=== PATIENT | female | born 1995 | race Caucasian/White ===

== ENCOUNTER 2021-04-06 09:27 | Emergency (ER) | payer OTHER ==
[~2021-04-06] VITALS: Ht 149.9 cm; Wt 74.8 kg
[2021-04-06 09:59] LABS: ABSOLUTE BASOPHILS 0.1 thou/uL (0.0-0.2); ABSOLUTE EOSINOPHILS 0.2 thou/uL (0.0-0.7); ABSOLUTE LYMPHOCYTES 2.5 thou/uL (0.8-5.3); ABSOLUTE MONOCYTES 0.5 thou/uL (0.0-1.2); BASOPHILS 0.9 %; EOSINOPHILS 3.1 %; HEMOGLOBIN 14.4 gm/dL (12.0-15.0); LYMPHOCYTES 34.2 %; MCH 29.5 pg (26.0-34.0); MCHC 34.3 g/dL (28.0-37.0); MCV 86.1 fL (80.0-100.0); MONOCYTES 6.8 %; MPV 8.4 fl. (7.2-11.1); NUCLEATED RBCS 0 /100WBC; PLATELET COUNT* 258 thou/uL (150-400); RBC 4.88 mil/uL (4.20-5.00); RDW-CV 12.2 % (10.5-14.5); WBC 7.2 thou/uL (4.0-11.0)
--- NOTE | 2021-04-06 10:17 | EKG ---
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1995 Requested By: Benjamín Rivera Order Number: [id number] MD: Ketan Elizalde Measurements Intervals [place] Rate: 90 P: 60 SD: 143 QRS: -8 QRSD: 81 T: 7 QT: 371 QTc: 454 Interpretive Statements Sinus rhythm Borderline T abnormalities, anterior leads No previous ECG available for comparison Electronically Signed On 04-06-2021 10:17:22 CDT by Ketan Elizalde [email or web address] <ELECTRONICALLY SIGNED> By: Ketan Elizalde MD, MERGED WITH [facility] 04/06/21 1017 7 7 Ketan Elizalde MD, MERGED WITH [facility] /EPI
[2021-04-06 10:37] LABS: ANION GAP 15 mmol/L (7-16); BUN 8 mg/dL (7-18); CALCIUM 8.5 mg/dL (8.5-10.1); CHLORIDE 102 mmol/L (98-107); CO2 19 mmol/L (21-32); CREATININE 0.9 mg/dL (0.6-1.3); GLUCOSE 103 mg/dL (70-99); POTASSIUM 3.4 mmol/L (3.5-5.1); SODIUM 136 mmol/L (136-145)
[2021-04-06 10:52] LABS: ALBUMIN 3.8 g/dL (3.4-5.0); ALKALINE PHOSPHATASE 82 U/L (46-116); CK-MB MASS < 0.5 ng/mL (<0.5-3.6); LIPASE 128 U/L (73-393); MAGNESIUM 2.1 mg/dL (1.8-2.4); NT-PRO BRAIN NAT PEPTIDE 10 pg/mL (<300); SGOT 25 U/L (15-37); SGPT 61 U/L (30-65); TOTAL BILIRUBIN 0.5 mg/dL (<0.1-1.0); TOTAL PROTEIN 7.5 g/dL (6.4-8.2)
[2021-04-06 11:12] VITALS: BP 118/91
== END 2021-04-06 11:12 | disposition home or self-care (01) ==
LOC: M.ERS 09:27
PROVIDERS: Family Medicine
DX: F41.9 Anxiety disorder, unspecified (principal); R07.89 Other chest pain

== ENCOUNTER 2021-05-20 19:06 | Emergency (ER) | payer OTHER ==
[~2021-05-20] VITALS: Ht 124.5 cm; Wt 74.8 kg
[2021-05-20 19:08] VITALS: BP 143/87
[2021-05-20] MEDS ORDERED: TRAZODONE HCL50 MG PO (19:12)
[2021-05-20] MEDS ORDERED: LEXAPRO20 MG PO (19:12)
== END 2021-05-20 22:41 | disposition left against medical advice (07) ==
LOC: M.ERS 19:06
DX: M54.9 Dorsalgia, unspecified (principal); Z53.21 Procedure and treatment not carried out due to patient leaving prior to being seen by health care provider